=== PATIENT | female | born 1955 | race Caucasian/White ===

== ENCOUNTER 2018-07-29 17:25 | Emergency (ER) | payer OTHER ==
[2018-07-29 17:30] VITALS: BP 151/82; PULSE 73; TEMP 98; BMI 25.4
--- NOTE | 2018-07-29 17:37 | PDOC ---
Rapid Medical Evaluation Chief Complaint: Injury Time Seen by Provider: 07/29/18 17:36 Medical Evaluation: Allergies Allergy/AdvReac Type Severity Reaction Status Date / Time No Known Allergies Allergy Verified 07/29/18 17:31 Vital Signs Temp Pulse Resp BP Pulse Ox 98 F 73 17 151/82 98 07/29/18 17:29 07/29/18 17:29 07/29/18 17:29 07/29/18 17:29 07/29/18 17:29 07/29/18 17:36 I have performed a brief in-person evaluation of this patient. The patient presents with a chief complaint of: injury Pertinent physical exam findings:stable and in NAD, non-focal I have ordered the following: xray The patient will proceed to the ED for further evaluation.
[2018-07-29] MEDS ORDERED: IBUPROFEN 600 MG TABLET (FP) PO ONE ×2 (18:46→18:55)
--- NOTE | 2018-07-29 18:53 | PDOC ---
History of Present Illness - General Chief Complaint: Injury Stated Complaint: FALL/INJURY Time Seen by Provider: 07/29/18 17:36 History Source: Patient Exam Limitations: No Limitations - History of Present Illness Initial Comments: 07/29/18 19:06 62 year old male with no significant medical or surgical history presents after fall today while walking with injury to left knee and right wrist. Patient reports pain and swelling to right wrist and scrapes to left knee. Denies dizizness before or after fall. Denies numbness or tingling of fingers or toes. No head strike 07/29/18 19:09 Occurred: reports: just prior to arrival Severity: reports: moderate Upper Extremity Pain Location: right: wrist Method of Injury: reports: fell Modifying Factors: improves with: immobilization Extremity Pain Location - Extremity Pain Location Extremity Pain Locations: right: hand, left: knee Past History - Travel Traveled outside of the country in the last 30 days: No Close contact w/someone who was outside of country & ill: No - Past Medical History Allergies/Adverse Reactions: Allergies Allergy/AdvReac Type Severity Reaction Status Date / Time No Known Allergies Allergy Verified 07/29/18 17:31 Home Medications: Ambulatory Orders Ibuprofen 600 mg PO TID #20 tablet 07/29/18 COPD: No Hypercholesterolemia: Yes - Suicide/Smoking/Psychosocial Hx Smoking History: Never smoked Information on smoking cessation initiated: No Hx Alcohol Use: No Drug/Substance Use Hx: No Review of Systems - Review of Systems Able to Perform ROS?: Yes Is the patient limited [place] proficient: No Constitutional: No: Chills, Fever, Weakness HEENTM: No: Nose Congestion, Hearing Loss, Throat Pain, Throat Swelling Respiratory: No: Orthopnea, Wheezing Cardiac (ROS): No: Edema, Lightheadedness, Palpitations Musculoskeletal: Yes: Other (right wrist pain and swelling. + scrapes to left knee, + tenderness to left knee). No: Back Pain Neurological: No: Numbness, Paresthesia, Tingling *Physical Exam - Vital Signs Last Vital Signs Temp Pulse Resp BP Pulse Ox 98 F 73 17 151/82 98 07/29/18 17:29 07/29/18 17:29 07/29/18 17:29 07/29/18 17:29 07/29/18 17:29 - Physical Exam General Appearance: Yes: Nourished, Appropriately Dressed HEENT: positive: CARLEEN. negative: Rhinorrhea, Hearing Grossly Normal, TM Bulging Neck: positive: Supple. negative: Lymphadenopathy (R), Lymphadenopathy (L) Respiratory/Chest: positive: Lungs Clear, Normal Breath Sounds Cardiovascular: positive: Regular Rhythm, Regular Rate Musculoskeletal: positive: Normal Inspection, Other (+swelling, mild tenderness with palpation ) Extremity: positive: Normal Capillary Refill, Other (+abrasions to left knee, + rom without difficulty) Neurologic: positive: Fully Oriented, Alert Medical Decision Making - Medical Decision Making 07/29/18 19:13 62 year old male with no significant medical or surgical history presents after fall today while walking with injury to left knee and right wrist. left knee injury and right wrist injury xray ordered in rme -negative xray of left knee and right wrist venita wrap applied analgesia given and prescribed *DC/Admit/Observation/Transfer Diagnosis at time of Disposition: Fall Qualifiers: Encounter type: initial encounter Qualified Code(s): W19.XXXA - Unspecified fall, initial encounter Wrist injury Qualifiers: Encounter type: initial encounter Laterality: right Qualified Code(s): S69.91XA - Unspecified injury of right wrist, hand and finger(s), initial encounter Knee injury Qualifiers: Encounter type: initial encounter Laterality: left Qualified Code(s): S89.92XA - Unspecified injury of left lower leg, initial encounter - Discharge Dispostion Disposition: HOME Condition at time of disposition: Good Decision to Admit order: No - Prescriptions Prescriptions: Ibuprofen 600 mg PO TID #20 tablet - Referrals Referrals: Satya Pettit MD [Primary Care Provider] - Meet Laird MD [Staff Physician] - Call tomorrow (call for appointment ) - Patient Instructions Printed Discharge Instructions: DI for Wrist Sprain, DI for Abrasion Additional Instructions: Please remove venita wrap for sleeping and bathing Apply ice compress to right wrist and left knee for 20 minutes 3 to 4 times daily May take ibuprofen with food for pain and swelling Call primary phyisician in one week if pain is not better for referral to orthopedic Print Language: WALLISIAN - Post Discharge Activity
== END 2018-07-29 19:31 | disposition home or self-care (01) ==
LOC: JERFT 17:25
DX: S69.81XA Other specified injuries of right wrist, hand and finger(s), initial encounter (principal); S89.82XA Other specified injuries of left lower leg, initial encounter; W01.0XXA Fall on same level from slipping, tripping and stumbling without subsequent striking against object, initial encounter; Y93.89 Activity, other specified; Y92.89 Other specified places as the place of occurrence of the external cause; Y99.8 Other external cause status
CPT/HCPCS: 73110-TC-RT-FY; 73130-TC-RT-FY; 73564-TC-LT-FY; 99281-25